=== PATIENT | female | born 1970 | race African-American/Black ===

== ENCOUNTER 2018-09-27 13:32 | Inpatient (IN) | payer BC ==
[~2018-09-27] VITALS: Ht 198.1 cm; Wt 99.8 kg
[2018-09-27] MEDS ORDERED: ONDANSETRON HCL 4MG/2ML INJ IV STA (14:26)
[2018-09-27] MEDS ORDERED: MORPHINE SULFATE 10 MG/ML CPJ IV ONE (14:30)
[2018-09-27 15:12] LABS: BASOPHILS % 0.7 % (0.0-2.0); EOSINOPHILS % 1.9 % (0.0-5.0); HEMOGLOBIN. 8.6 g/dL (12.0-16.0); LYMPHOCYTES % 31.6 % (20.0-50.0); MEAN CORPUSCULAR HEMOGLOBIN 21.1 pg (28.0-32.0); MEAN PLATELET VOLUME 8.8 fl (7.4-10.4); MONOCYTES % 8.3 % (2.0-8.0); NEUTROPHILS % 57.5 % (40.0-76.0); PLATELET 346 x1000/uL (130-400); RED BLOOD CELL COUNT 4.06 mill/uL (4.2-5.4); RED CELL DISTRIBUTION WIDTH 18.3 % (11.6-14.6)
[2018-09-27 15:19] LABS: INR 1.1; PROTHROMBIN TIME 10.6 sec (9.1-11.1)
[2018-09-27 15:20] LABS: CHLORIDE 107 mEq/L (98-107)
[2018-09-27 15:33] LABS: PLATELET ESTIMATE NORMAL
[2018-09-27 16:21] LABS: HCG SCREEN NEGATIVE
[2018-09-27] MEDS ORDERED: ASPIRIN 325MG EC TABLET PO ONE (18:00)
[2018-09-27] MEDS ORDERED: HYDROCODONE/ACETAMINOPHEN 5/325MG TABLET PO ONE (18:15)
[2018-09-27] MEDS ORDERED: HYDROMORPHONE HCL/PF 2MG/ML CPJ IV PRN (19:30)
[2018-09-27] MEDS ORDERED: CLONIDINE 0.1MG TABLET PO PRN (19:30)
[2018-09-27] MEDS ORDERED: ACETAMINOPHEN 325MG TABLET PO PRN (19:30)
[2018-09-27] MEDS ORDERED: NA PHOS,M-B/NA PHOS,DI-BA ENEMA 118ML PR PRN (19:30)
[2018-09-27] MEDS ORDERED: DOCUSATE SODIUM 100MG CAPSULE PO PRN (19:30)
[2018-09-27] MEDS ORDERED: MAGNESIUM/ALUMINUM HYDROXIDE/SIMETHICONE 30ML UDC PO PRN (19:30)
[2018-09-27] MEDS ORDERED: DIPHENHYDRAMINE 50MG/ML VIAL IV PRN (19:30)
[2018-09-27] MEDS ORDERED: LORAZEPAM 2MG/ML CPJ IV PRN (19:30)
[2018-09-27] MEDS ORDERED: GUAIFENESIN 200MG/10ML SUGAR FREE UDC PO PRN (19:30)
[2018-09-27] MEDS ORDERED: ONDANSETRON HCL 4MG/2ML INJ IV PRN (19:30)
[2018-09-27] MEDS ORDERED: HYDROCODONE/ACETAMINOPHEN 10/325MG TABLET PO PRN (19:30)
[2018-09-27] MEDS ORDERED: IPRATROPIUM/ALBUTEROL 0.5-3(2.5)MG/3ML NEB INH PRN (19:30)
[2018-09-27] MEDS ORDERED: IOHEXOL-350 100 ML BOTTLE ONE (20:40)
[2018-09-27 21:30] VITALS: BP 107/54
[2018-09-27] MEDS: ENOXAPARIN 30MG/0.3ML SYR SUBCUT SCH (22:38)
[2018-09-27 23:00] VITALS: BP 107/54
[2018-09-28] VITALS (7 sets, daily range): BP systolic 93–123; BP diastolic 51–73
[2018-09-28 01:39] LABS: CREATINE KINASE 80 IU/L (26-192)
[2018-09-28 01:41] LABS: CREATINE KINASE MB FRACTION < 1.0 ng/mL (0.5-3.6)
[2018-09-28] MEDS: SODIUM CHLORIDE 0.9% INJ 3ML FLUSH IVF SCH ×2 (04:59→14:00)
[2018-09-28 06:40] LABS: BASOPHILS % 0.7 % (0.0-2.0); EOSINOPHILS % 0.6 % (0.0-5.0); HEMATOCRIT. 27.9 % (36.0-48.0); HEMOGLOBIN. 8.7 g/dL (12.0-16.0); MEAN CORPUSCULAR HEMOGLOBIN 21.3 pg (28.0-32.0); MEAN CORPUSCULAR VOLUME 68.2 fL (81.0-99.0); MEAN PLATELET VOLUME 9.1 fl (7.4-10.4); MONOCYTES % 8.5 % (2.0-8.0); NEUTROPHILS % 66.2 % (40.0-76.0); PLATELET 339 x1000/uL (130-400); RED BLOOD CELL COUNT 4.09 mill/uL (4.2-5.4); RED CELL DISTRIBUTION WIDTH 18.4 % (11.6-14.6)
[2018-09-28 07:00] LABS: CHLORIDE 106 mEq/L (98-107)
[2018-09-28 07:13] LABS: CREATINE KINASE 72 IU/L (26-192); CREATINE KINASE MB FRACTION < 1.0 ng/mL (0.5-3.6)
[2018-09-28 07:14] LABS: HDL CHOLESTEROL 49 mg/dL (40-59); LDL CHOLESTEROL 78 mg/dL (5-100); T4 FREE 0.88 ng/dL (0.76-1.46)
[2018-09-28] MEDS ORDERED: ASPIRIN 81MG EC TABLET PO SCH (09:00)
[2018-09-28] MEDS: ENOXAPARIN 30MG/0.3ML SYR SUBCUT SCH (09:59)
[2018-09-28] MEDS ORDERED: REGADENOSON 0.4 MG/5 ML IV SCH (11:15)
[2018-09-28] MEDS ORDERED: GABAPENTIN 300MG CAPSULE PO SCH (12:00)
[2018-09-28] MEDS ORDERED: REGADENOSON 0.4 MG/5 ML IV ONE (13:49)
== END 2018-09-28 21:40 | disposition home or self-care (01) | DRG 552 ==
LOC: ER 13:32 → EDBEDREQ 18:23 → EDBEDREQTM 18:23 → ENRESERV 20:28 → 8WST 21:17
PROVIDERS: ADMIT Internal Medicine; ATTEND Internal Medicine
DX: M47.892 Other spondylosis, cervical region (principal); I24.9 Acute ischemic heart disease, unspecified; D64.9 Anemia, unspecified; Z98.891 History of uterine scar from previous surgery
CPT/HCPCS: 36415; 70498; 71045; 71275; 78452; 80061; 82550; 82553; 83036; 84439; 84443; 84484; 84703; 93005; 93017; 93970; 96374; 96375; 99291; A9500; J1170; J1200; J1650; J2270; J2405; J2785; Q9967